=== PATIENT | female | born 1985 | race Caucasian/White ===

== ENCOUNTER 2016-10-03 06:21 | Day surgery (SDC) | payer BC ==
[~2016-10-03 06:21] MED LIST: LIDOCAINE W/ SODIUM BICARB 0.5 ML SYR ONE; Lactated Ringers 1,000 ML PRIMARY IV ONE
[2016-10-03 06:37] LABS: BILIRUBIN,URINE NEGATIVE (NEG); CLARITY,URINE CLEAR (CLEAR); GLUCOSE, URINE (UA) NEGATIVE (NEG); LEUKOCYTE ESTERASE ,URINE NEGATIVE (NEG); NITRATE,URINE NEGATIVE (NEG); OCCULT BLOOD,URINE NEGATIVE (NEG); PH,URINE 7.5 (5.0-8.5); PROTEIN,URINE NEGATIVE (NEG); UROBILINOGEN,URINE 0.2 EU/dL (0.2)
[2016-10-03 06:38] LABS: URINE SAMPLE TYPE CLEAN CATCH URINE
[2016-10-03] MEDS ORDERED: BUPivacaine Inj 0.25% PF - 10ml vial ONE ×2 (06:55→08:24)
[2016-10-03] MEDS ORDERED: Sodium Chloride 0.9% vial 10 ML ONE (06:57)
[2016-10-03] MEDS ORDERED: LIDOCAINE MPF 2% - 5 ML (20 MG/1 ML) ONE (06:57)
[2016-10-03] MEDS ORDERED: fentaNYL Inj 250 MCG/5 ML VIAL ONE (06:57)
[2016-10-03] MEDS ORDERED: MIDAZOLAM 5 MG/1 ML ONE (06:57)
[2016-10-03] MEDS ORDERED: KETAMINE 100 MG/1 ML - 5 ML ONE (06:57)
[2016-10-03] MEDS ORDERED: ROCURONIUM 10 MG/1 ML - 5 ML VIAL IVP ONE (07:00)
[2016-10-03] MEDS ORDERED: ONDANSETRON 4 MG/2 ML VIAL IVP PRN (08:27)
[2016-10-03] MEDS ORDERED: KETOROLAC 15 MG/1 ML VIAL IVP PRN (08:27)
[2016-10-03] MEDS ORDERED: fentaNYL Inj 100 MCG/2 ML VIAL IVP PRN (08:27)
[2016-10-03] MEDS ORDERED: Ondansetron ODT Tab 8 MG TAB PO PRN ×2 (08:27→08:35)
[2016-10-03] MEDS ORDERED: HYDROmorphone 2 MG/1 ML IVP PRN (08:27)
[2016-10-03] MEDS ORDERED: ATROPINE SULFATE 0.4 MG/1 ML VIAL IVP PRN (08:27)
[2016-10-03] MEDS ORDERED: NORMAL SALINE 10 ML SYRINGE FLUSH IVP PRN ×2 (08:27→08:35)
[2016-10-03] MEDS ORDERED: DEXAMETHASONE PF 10 MG/1 ML VIAL ONE (08:29)
[2016-10-03] MEDS ORDERED: Lactated Ringers 1,000 ML PRIMARY IV ONE (08:29)
[2016-10-03] MEDS ORDERED: Lactated Ringers 1,000 ML PRIMARY IV SCH (08:30)
[2016-10-03] MEDS ORDERED: IBUPROFEN 800 MG TABLET PO PRN (08:35)
[2016-10-03] MEDS ORDERED: SUGAMMADEX SODIUM 200 MG/2 ML VIAL IV ONE (08:35)
[2016-10-03] MEDS ORDERED: KETOROLAC 30 MG/1 ML VIAL IVP PRN (08:35)
[2016-10-03] MEDS ORDERED: HYDROcodone-APAP 5 MG -325 MG TABLET PO PRN (08:35)
--- NOTE | 2016-10-03 08:39 | OB.OP.NOTE ---
Operative Report Surgeon: Waylon Turkey Picker: Bird Villa MD Anesthesia Type: General Anesthesia Provider: Trina Norton CRNA Surgery Date: 10/03/16 Preoperative Diagnosis: CPP Postoperative Diagnosis: CPP Procedure: LS Left Oophorectomy Estimated Blood Loss (mL): 5 Fluids: 1500 ml Complications: None Findings at Surgery: Normal left ovary Indications for the Procedure: Chronic pelvic pain and recurring ovarian cysts Description of Procedure: See dictated operative report. Plan: Routine post op care and discharge to home.
[2016-10-03] MEDS ORDERED: Acetaminophen 1000mg Inj 1,000 MG in Premix 1 BAG IV ONE ×2 (09:30→09:33)
[2016-10-03] MEDS ORDERED: Acetaminophen 1000mg Inj 100 ML IV ONE (09:31)
[2016-10-03] MEDS ORDERED: KETOROLAC 30 MG/1 ML VIAL ONE (10:02)
[2016-10-03 10:25] VITALS: RESP 18
[2016-10-03 12:19] VITALS: TEMP 97.5
== END 2016-10-03 11:17 | disposition home or self-care (01) ==
LOC: SDSC 06:21
PROVIDERS: ATTEND Obstetrics & Gynecology
DX: N83.292 Other ovarian cyst, left side (principal)
CPT/HCPCS: 58661; 81003; A4216; J0131; J1885; J2704; J3010; J1100; J2001; J2250; J7120

== ENCOUNTER → 2016-10-09 | Outpatient (CLI) | payer BC ==
[2016-10-09 14:40] LABS: FREE T4 (FREE THYROXINE) 1.28 ng/dL (0.93-1.71)
== END ==
LOC: MOB LAB 11:42
PROVIDERS: ATTEND Nurse Practitioner Women's Health
DX: E03.9 Hypothyroidism, unspecified (principal)
CPT/HCPCS: 36415; 84439; 84443

== ENCOUNTER → 2016-11-20 | Outpatient (CLI) | payer BC ==
[2016-11-20 15:37] LABS: FREE T4 (FREE THYROXINE) 1.47 ng/dL (0.93-1.71)
== END ==
LOC: LAB 14:40
PROVIDERS: ATTEND Family Medicine
DX: E03.9 Hypothyroidism, unspecified (principal)
CPT/HCPCS: 36415; 84439; 84443

== ENCOUNTER → 2016-12-30 | Outpatient (CLI) | payer BC ==
[2016-12-30 15:47] LABS: BLOOD UREA NITROGEN 16 mg/dL (7-22); BUN/CREATININE RATIO 17.77 (6-20); CALCIUM 9.5 mg/dL (8.7-10.7); EST GLOMERULAR FILTRATION > 60 (>60 ml/min/1.73m(2)); SERUM ALBUMIN 4.2 g/dL (3.5-4.8)
[2016-12-30 16:27] LABS: BASOPHILS # (AUTO) 0.02 10*3/UL; BASOPHILS % (AUTO) 0.3 % (0-1); EOSINOPHILS # (AUTO) 0.08 10*3/UL; EOSINOPHILS % (AUTO) 1.4 % (0-8); HEMATOCRIT 37.7 % (37.0-47.0); HEMOGLOBIN 12.7 g/dL (12.0-16.0); LYMPHOCYTES # (AUTO) 2.13 10*3/uL; MEAN CORPUSCULAR HEMOGLOBIN 28.1 PG (27-31); MEAN CORPUSCULAR HGB CONC 33.7 g/dL (33-37); MEAN CORPUSCULAR VOLUME 83.4 FL (81-99); MEAN PLATELET VOLUME 9.5 FL (7.4-12.2); MONOCYTES # (AUTO) 0.41 10*3/UL (0.3-0.8); MONOCYTES % (AUTO) 7.1 % (5-15); NEUTROPHILS # (AUTO) 3.13 10*3/UL; NEUTROPHILS % (AUTO) 54.3 % (50-80); RED BLOOD COUNT 4.52 10^6/uL (4.20-5.40)
[2016-12-30 16:33] LABS: PLATELET MORPHOLOGY COMMENT NORMAL MORPHOLOGY (NORM); RBC MORPHOLOGY COMMENT NORMAL MORPHOLOGY (NORM); WBC MORPHOLOGY COMMENT NORMAL MORPHOLOGY (NORM)
== END ==
LOC: LAB 15:14
PROVIDERS: ATTEND Internal Medicine
DX: D68.52 Prothrombin gene mutation (principal)
CPT/HCPCS: 36415; 80053; 85025

== ENCOUNTER → 2017-02-05 | Outpatient (CLI) | payer BC ==
[2017-02-05 17:25] LABS: HEMOGLOBIN A1C 5.29 % (4.2-6.0)
[2017-02-05 17:48] LABS: FREE T4 (FREE THYROXINE) 1.33 ng/dL (0.93-1.71)
== END ==
LOC: MOB LAB 16:36
PROVIDERS: ATTEND Nurse Practitioner Women's Health
DX: E03.9 Hypothyroidism, unspecified (principal); R73.02 Impaired glucose tolerance (oral)
CPT/HCPCS: 36415; 83036; 84439; 84443